=== PATIENT | male | born 1950 | race Caucasian/White ===

== ENCOUNTER 2025-03-29 14:32 | Outpatient (CLI) | payer MEDICARE | END 2025-03-29 14:33 | disposition home or self-care (01) | LOC: SCSMRI 14:32 | PROVIDERS: ATTEND Family Medicine | DX: M54.2 Cervicalgia (principal); R41.3 Other amnesia; R20.2 Paresthesia of skin; M47.812 Spondylosis without myelopathy or radiculopathy, cervical region | CPT/HCPCS: 70551; 72141 ==